=== PATIENT | female | born 1950 | race American Indian/Alaskan Native ===

== ENCOUNTER 2017-01-11 14:54 | Emergency (ER) | payer MEDICARE, OTHER ==
[~2017-01-11] VITALS: Ht 162.6 cm; Wt 77.1 kg
[~2017-01-11 14:54] MED LIST: AMLODIPINE BESYL5 MG PO; CEFADROXIL1 GM PO; FERROUS SULFAT325 MG PO; FEXOFENADINE H180 MG PO; FUROSEMIDE20 MG PO; POTASSIUM CHLO10 MEQ PO; PROVENTIL HFA6.7 GM INH; ROPINIROLE HCL2 MG PO; SPIRONOLACTONE50 MG PO; TESSALON PERLE100 MG PO; TRAMADOL HCL50 MG PO; VITAMIN C500 M1 PO
[2017-01-11] MEDS ORDERED: HYDROCODON-ACE1 EA10 PO (15:10)
[2017-01-11] MEDS ORDERED: NORCO 5-325 TA1 EACH PO (15:53)
[2017-01-15] MEDS ORDERED: VITAMIN D1000 UNI1 PO (10:39)
== END 2017-01-11 16:25 | disposition home or self-care (01) ==
LOC: ED 14:54
PROC: 2W3DX1Z Immobilization of Left Lower Arm using Splint (ICD-10-PCS; principal; 2017-01-11)
DX: S52.572A Other intraarticular fracture of lower end of left radius, initial encounter for closed fracture (principal); S52.612A Displaced fracture of left ulna styloid process, initial encounter for closed fracture; I10 Essential (primary) hypertension; Z87.891 Personal history of nicotine dependence; Z90.49 Acquired absence of other specified parts of digestive tract; Z88.6 Allergy status to analgesic agent; Z79.899 Other long term (current) drug therapy; Z96.641 Presence of right artificial hip joint; W19.XXXA Unspecified fall, initial encounter
CPT/HCPCS: 29125; 99282

== ENCOUNTER 2017-01-16 10:00 | Day surgery (SDC) | payer MEDICARE, OTHER ==
[~2017-01-16] VITALS: Ht 162.6 cm; Wt 84.4 kg
[~2017-01-16 10:00] MED LIST changes: +HYDROCODON-ACE1 EA10 PO; +NORCO 5-325 TA1 EACH PO; +VITAMIN D1000 UNI1 PO
--- NOTE | 2017-01-16 14:00 | NUR ---
[facility]16/17 [facility], O2 DECRE[facility] TO 6L.
--- NOTE | 2017-01-16 14:48 | NUR ---
1440 - PT ARRIVED FROM PACU, AWAKE BUT DROWSY. PT COMPLAINING OF NECK PAIN AND RIGHT SHOULDER PAIN. ASSEMBLER TRIM NOTIFIED R/T RECENT EKG AND POSSIBLE SVT IN PACU. PT DENIES NAUSEA, CHEST PAIN, AND CHEST PRESURE. NO FAMILY AT BEDSIDE. BED RAILS UP, CALL LIGHT WITHIN REACH.
--- NOTE | 2017-01-16 16:17 | NUR ---
1510: PATIENT MEDICATED FOR POSTERIOR NECK AND RIGHT SHOULDER PAIN WITH IV MORPHINE. GIVEN JELLO TO EAT. 1535: PATIENT ASSISTED OOB AND TO COMMODE. VOID WITHOUT DIFFICULTY. ASSISTED BACK TO BED. SCDs REPLACED. GIVEN VANILLA PUDDING. GIVEN 1 TAB OF NORCO FOR CONTINUED PAIN. CALL LIGHT WITHIN REACH.
[2017-01-16] MEDS ORDERED: NORCO 10-325 T1 EACH PO (16:28)
--- NOTE | 2017-01-17 18:45 | EKG ---
[facility] [address] [facility] [place] [address] Signed Normal sinus rhythm Inferior infarct (cited on or before 15-JAN-2017) Abnormal ECG When compared with ECG of 15-JAN-2017 10:35, premature atrial complexes are no longer present Confirmed by MIGDALIA SCHOFIELD MD ([id number]) on 01/17/2017 6:45:09 PM Electronically Signed By: MIGDALIA SCHOFIELD MD 01/17/17 1845 PATIENT NAME: TEX WESLEY KIKI Electrocardiogram DATE OF : 48 PHYSICIAN: MIGDALIA SCHOFIELD MD REPORT #: [id number] REPORT IS CONFIDENTIAL AND NOT TO BE RELEASED WITHOUT AUTHORIZATION
--- NOTE | 2017-01-19 10:19 | EKG ---
[facility] [address] [place] [address] Signed Normal sinus rhythm Low voltage QRS Prolonged QT Abnormal ECG When compared with ECG of 16-JAN-2017 10:35, (Unconfirmed) Criteria for Inferior infarct are no longer present Confirmed by AMANDA TAN MD ([id number]) on 01/19/2017 10:19:16 AM Electronically Signed By: AMANDA TAN MD 01/19/17 1019 PATIENT NAME: TEX WESLEY KIKI Electrocardiogram DATE OF : 48 PHYSICIAN: AMANDA TAN MD REPORT #: [id number] REPORT IS CONFIDENTIAL AND NOT TO BE RELEASED WITHOUT AUTHORIZATION
--- NOTE | 2017-01-22 08:13 | OR ---
[facility] [address] [place], [place] [address] Signed DATE OF SERVICE: 01/16/2017 PREOPERATIVE DIAGNOSIS: Comminuted intra-articular distal radial fracture, right. POSTOPERATIVE DIAGNOSIS: Comminuted intra-articular distal radial fracture, right. PROCEDURE: Open reduction and internal fixation. SURGEON: Jill Bermudez MD ANESTHESIA: Axillary block with sedation. SPECIMEN: There were no specimens. COMPLICATIONS: None. TOURNIQUET TIME: About 40 minutes. PROCEDURE IN DETAIL: The patient was taken to the operating room. After anesthesia was induced and the airway secured, the patient's right upper extremity was positioned, prepped and draped in routine sterile fashion. The arm was exsanguinated with an Esmarch bandage and pneumatic tourniquet was inflated to 250 mmHg pressure. The fracture was provisionally reduced manually. It was then placed in 10 pounds of finger trap traction. A longitudinal volar incision was then made beginning at the distal wrist flexion crease extending proximally for about 8 cm in line with the FCR tendon. Skin was divided sharply and subcutaneous tissue was bluntly spread. The FCR tendon sheath was opened on the ventral surface and was then retracted laterally. We then opened the deep surface of the tendon sheath. It is all tender and soft and retractors were placed moving all the volar contents in an ulnar direction. The fracture was exposed with a combination of sharp and blunt dissection. The fracture was then provisionally reduced. We then fine-tuned the reduction and applied a distal volar radial plate. After we arranged the location of the plate under fluoroscopic control, this made secured proximally with a single screw. We then fine-tuned the adjustment of the plate for the fracture fragments. We then secured the plate proximally with 4 screws and distally with 4 smooth pins. AP and lateral fluoroscopy confirmed good alignment, good position, and stable construct. The wound was gently irrigated, closed in standard fashion. A sterile dressing was applied over which a volar splint was placed. She was awakened, taken to recovery room, where she arrived in stable condition. Counts were correct and antibiotic protocols were followed. Electronically Signed By: JILL BERMUDEZ MD 01/22/17 0813 PATIENT NAME: TEX WESLEY [facility] OPERATIVE REPORT DATE OF : 48 PHYSICIAN: JILL BERMUDEZ MD REPORT #: [id number] REPORT IS CONFIDENTIAL AND NOT TO BE RELEASED WITHOUT AUTHORIZATION [facility] [address] [place] [address] [place], [place] [address] Signed Jill Bermudez MD WFB/Modl /[id number] Electronically Signed By: JILL BERMUDEZ MD 01/22/17812 PATIENT NAME: TEX WESLEY OPERATIVE REPORT DATE OF : 48 PHYSICIAN: JILL BERMUDEZ MD REPORT #: [id number] REPORT IS CONFIDENTIAL AND NOT TO BE RELEASED WITHOUT AUTHORIZATION
== END 2017-01-16 16:45 | disposition home or self-care (01) ==
LOC: DS 10:00 → OPS 10:00 → DS 12:45 → OPS 16:45
PROVIDERS: Orthopaedic Surgery
PROC: 0PSH04Z Reposition Right Radius with Internal Fixation Device, Open Approach (ICD-10-PCS; principal; 2017-01-16 12:45)
DX: S52.501A Unspecified fracture of the lower end of right radius, initial encounter for closed fracture (principal); I10 Essential (primary) hypertension
CPT/HCPCS: 01830; 36415; 64417; 73100; 76942; 85025; 93005; 93010; C1713; J0690; J1100; J2270; J2704; J2795; J3010; J7120

== ENCOUNTER 2021-06-29 08:42 | Inpatient (IN) | payer MEDICARE, OTHER ==
[~2021-06-29] VITALS: Ht 162.6 cm; Wt 84.0 kg
[~2021-06-29 08:42] MED LIST changes: +NORCO 10-325 T1 EACH PO
[2021-07-01] MEDS ORDERED: CEPHALEXIN500 M1 PO (10:00)
== END 2021-07-01 12:35 | disposition home or self-care (01) | DRG 603 ==
LOC: ED 08:42 → MS 08:44
PROVIDERS: ADMIT Student in an Organized Health Care Education/Training Program; ATTEND Student in an Organized Health Care Education/Training Program
DX: L03.116 Cellulitis of left lower limb (principal); Z20.822 Contact with and (suspected) exposure to COVID-19; S80.02XA Contusion of left knee, initial encounter; I10 Essential (primary) hypertension; R26.89 Other abnormalities of gait and mobility; W19.XXXA Unspecified fall, initial encounter; Z88.8 Allergy status to other drugs, medicaments and biological substances; Z87.891 Personal history of nicotine dependence; Z96.641 Presence of right artificial hip joint
CPT/HCPCS: 73560; 80048; 80053; 80202; 82553; 83605; 85025; 85610; 85730; 86140; 87040; 93971; 96365; 96366; 96376; 97110; 97116; 97161; 99284-25; A9270; C9803; G0378; J0696; J3370; J7060; J7121; U0003

== ENCOUNTER 2024-04-24 16:43 | Observation (INO) | payer MEDICARE, OTHER ==
[~2024-04-24] VITALS: Ht 162.6 cm; Wt 90.8 kg
[~2024-04-24 16:43] MED LIST changes: +CEPHALEXIN500 M1 PO
[2024-04-24] MEDS ORDERED: SODIUM CHLORIDE 0.9% 500 ML IV PRN (20:00)
[2024-04-24 20:01] LABS: BASOPHILS 1.2 % (0-2); EOSINOPHILS 2.7 % (0-6); HEMATOCRIT 19.7 % (35.0-50.0); HEMOGLOBIN 6.1 g/dL (12.0-18.0); LYMPHOCYTES 14.3 % (24-44); MCH 22.1 (27-36); MCV 71.2 fl (81-99); MONOCYTES 5.5 % (0-12); NEUTROPHILS 76.3 % (39-80); PLATELET COUNT 205 K/uL (140-440); RBC 2.77 M/ul (4.3-5.7); RDW 19.7 (10.5-15.0)
[2024-04-24] MEDS ORDERED: PANTOPRAZOLE SODIUM 40 MG/10 ML VIAL IV ONE (20:15)
[2024-04-24 20:17] LABS: ALBUMIN 3.6 g/dL (3.4-5.0); ALBUMIN/GLOBULIN RATIO 1.13 (1.1-2.4); ANION GAP 11.7 (7-21); BILIRUBIN, TOTAL 0.8 ng/dL (0.2-1.0); BUN/CREATININE RATIO 9.9 (6.0-28.6); CALCIUM 8.4 mg/dL (8.5-10.1); CREATININE, SERUM 1.11 mg/dL (0.55-1.02); POTASSIUM 4.7 mmol/L (3.5-5.1); PROTEIN, TOTAL 6.8 g/dL (6.4-8.2)
[2024-04-24 20:25] LABS: INR 1.11 (0.80-1.30)
[2024-04-24 20:28] LABS: PARTIAL THROMBOPLASTIN TIME 30.5 Sec (22.9-41.3)
[2024-04-24] MEDS ORDERED: ondansetron HCL 4 MG/2 ML VIAL IV PRN (20:30)
[2024-04-24] MEDS ORDERED: PANTOPRAZOLE SODIUM 40 MG/10 ML VIAL IV SCH (21:00)
[2024-04-24 21:04] LABS: ABO O; ANTIBODY SCREEN NEGATIVE; RH POSITIVE
[2024-04-24 21:05] LABS: ABO O; RH POSITIVE
[2024-04-24 21:13] LABS: IS CROSSMATCH COMPATIBLE
--- NOTE | 2024-04-24 21:15 | NUR ---
PT RECEIVED REPORT FORM SOCORRO KRAUSE. PT TRANSPORTED TO ROOM VIA STRETCHER. PT ABLE TO AMBULATE TO HOSPITAL BED W/ SBA. PT BROUGHT CANE FROM HOME. VSS. CALL LIGHT WITHIN REACH. MD IN AT BEDSIDE, ASSESSING PT. BLOOD CONSENT SIGNED W/ & RN PRESENT. LSC, NO SOB. HRR. 1+ EDEMA TO BLE. BTA, LBM TODAY. DUE TO VOID. RFA IV PATENT, NO BLOOD RETURN. DENIES PAIN AT THIS TIME. ORD FOR 2 UNITS PRBC'S TONIGHT.
[2024-04-24 21:22] VITALS: BP 138/91
--- NOTE | 2024-04-24 22:10 | NUR ---
PT VSS. BLOOD TRANSFUSION STARTED @ 120MLS/HR. NO S/S ADVERSE REACTION NOTED OR REPORTED AT THIS TIME. RN TO STAY AT BEDSIDE FOR 1ST 15 MINS.
[2024-04-24 22:16] VITALS: BP 138/91
--- NOTE | 2024-04-24 22:51 | NUR ---
SCD'S APPLIED TO BLE. PT TOLERATING BLOOD TRANSFUSION. USED BSC W/ CGA. SMALL AMT URINE MIXED WITH LIQUID STOOL. WATCHING TV. CALL LIGHT WITHIN REACH.
--- NOTE | 2024-04-24 23:49 | NUR ---
PT UP TO BSC W/ 1 ASSIST. 1ST UNIT OF PRBC'S COMPLETED, NO TRANSFUSION REACTION, TOLERATED WELL.
--- NOTE | 2024-04-25 00:01 | NUR ---
2ND UNIT PRBC'S STARTED. VSS. PT C/O RESTLESS LEGS. CALL LIGHT WITHIN REACH.
--- NOTE | 2024-04-25 00:19 | NUR ---
PT TOLERATING BLOOD TRANSFUSION. 15 MIN VSS. NO COMPLAINTS. CALL LIGHT WITHIN REACH.
--- NOTE | 2024-04-25 01:05 | NUR ---
PT AWAKE, TOLERATING BLOOD TRANSFUSION WELL. NO COMPLAINTS OR NEEDS AT THIS TIME.
--- NOTE | 2024-04-25 02:01 | NUR ---
TRANSFUSION OF UNIT # 2 COMPLETE. NO REACTION NOTED. PT USED BSC W/ CGA. VOIDS WNL. CALL LIGHT WITHIN REACH.
--- NOTE | 2024-04-25 03:34 | NUR ---
PT SLEEPING SOUNDLY. BREATHING EVEN AND UNLABORED. CALL LIGHT WITHIN REACH.
--- NOTE | 2024-04-25 03:50 | NUR ---
POSITION DESCRIPTION MANAGER HELPED PT TO BSC AND BACK TO BED. PT VOIDED 100 ML.
[2024-04-25 05:21] VITALS: BP 151/76
[2024-04-25 05:39] LABS: ANION GAP 13.4 (7-21); BUN/CREATININE RATIO 8.65 (6.0-28.6); CALCIUM 8.2 mg/dL (8.5-10.1); CREATININE, SERUM 1.04 mg/dL (0.55-1.02); MAGNESIUM 2.1 mg/dL (1.8-2.4); POTASSIUM 4.4 mmol/L (3.5-5.1)
[2024-04-25 05:47] LABS: BASOPHILS 1.2 % (0-2); HEMATOCRIT 22.5 % (35.0-50.0); HEMOGLOBIN 7.2 g/dL (12.0-18.0); LYMPHOCYTES 21.5 % (24-44); MCH 24.2 (27-36); MCHC 32.1 g/dl (30-36); MCV 75.2 fl (81-99); MONOCYTES 6.9 % (0-12); NEUTROPHILS 66.4 % (39-80); PLATELET COUNT 156 K/uL (140-440); RBC 2.99 M/ul (4.3-5.7); RDW 21.7 (10.5-15.0)
[2024-04-25 05:59] VITALS: BP 151/76
--- NOTE | 2024-04-25 06:21 | NUR ---
PT AWAKE, SLEEPING BETWEEN CARE. DENIES NEEDS. REPORTS FEELING IMPROVED THIS MORNING. CALL LIGHT WITHIN REACH.
--- NOTE | 2024-04-25 07:18 | NUR ---
ASSUMING CARE OF PT. RECEIVED REPORT FROM JOSIAH QUINTANILLA. PT RESTING IN BED, CALL LIGHT WITHIN REACH, BEDRAILS UP. PT EYES CLOSED, RESPIRATIONS EVEN AND UNLABORED.
--- NOTE | 2024-04-25 08:59 | NUR ---
UR CLINICAL REVIEW: 2MN [facility]- MEETS OBS FOR [facility] [employer]IC[employer] OBS: 04/24/24 @ 2021 ORDER MATCHES REG NO AUTH REQUIRED PER MEDICARE RULES PLAN TO DC TO HOME WHEN STABLE.
[2024-04-25] MEDS ORDERED: FLU VACC TS2024(65UP)/MF59C/PF 1 EACH SYR IM SCH (09:00)
--- NOTE | 2024-04-25 09:50 | NUR ---
Spoke with pt. She plans on dc to home today. States she is feeling much better after receiving 2UPRBC. She lives at home with a roommate in [place]. No steps. Uses a taxi for transport as she is unable to get into the [employer] bus. She and roommate share household tasks, shopping, cooking. She has a walker and cane. She also has food stamps. She denies any other needs. Will need a taxi home. Charge nurse notified. Aid will make her a fu appt with Dr. Jha at [facility].
[2024-04-25 09:51] VITALS: BP 149/76
--- NOTE | 2024-04-25 10:30 | NUR ---
took over for patient at this time, reort taken. Pt up in the bathroom had med amount of soft formed stool brown in color.
--- NOTE | 2024-04-25 10:36 | NUR ---
VISITED DURING SPIRITUAL CARE ROUNDS. PT IN OVERALL GOOD SPIRITS, DENIED IMMEDIATE NEEDS. APPAREL EMBROIDERY DIGITIZER PROVIDED SUPPORTIVE PRESENCE, HOSPITALITY, PRAYER. PT EXPRESSED GRATITUDE.
[2024-04-25] MEDS ORDERED: PHARMACY RENAL DOSE ADJUSTMENT 1 DOSE MISC PO SCH (12:00)
--- NOTE | 2024-04-25 12:00 | NUR ---
LAB HERE TO OBTAIN SAMPLE FOR H&H. 12:15 DR WILL DISCHARGE PT TO HOME TODAY AND TO FOLLOW UP WITH PCP. 12:20 PT SET UP FOR LUNCH.
[2024-04-25 12:05] LABS: HEMATOCRIT 24.2 % (35.0-50.0); HEMOGLOBIN 7.9 g/dL (12.0-18.0)
--- NOTE | 2024-04-25 12:31 | NUR ---
MED REC COMPLETE
[2024-04-25] MEDS ORDERED: ROPINIROLE HCL0.5 MG PO (12:32)
[2024-04-25] MEDS ORDERED: FERROUS GLUCON324 M1 PO (12:59)
[2024-04-25 13:08] VITALS: BP 145/79
== END 2024-04-25 13:20 | disposition home or self-care (01) ==
LOC: ED 16:43 → MS 20:33
PROVIDERS: Internal Medicine; ADMIT Student in an Organized Health Care Education/Training Program; ATTEND Student in an Organized Health Care Education/Training Program
DX: D50.9 Iron deficiency anemia, unspecified (principal); G25.81 Restless legs syndrome; I10 Essential (primary) hypertension; K74.60 Unspecified cirrhosis of liver; G89.29 Other chronic pain; M54.9 Dorsalgia, unspecified; Z88.5 Allergy status to narcotic agent; Z79.899 Other long term (current) drug therapy
CPT/HCPCS: 36415; 36430; 80048; 80053; 83735; 85014; 85018; 85025; 85610; 85730; 86850; 86900; 86901; 86922; 90694; 96372; 96374; 96376; 99284-25; G0378; J2470; J7040; P9016